=== PATIENT | male | born 1955 | race Caucasian/White ===

== ENCOUNTER → 2017-05-27 08:33 | Outpatient (CLI) | payer OTHER ==
--- NOTE | ~2017-05-27 | EC ---
PATIENT:KAM GUZMAN DATE OF SERVICE: 05/27/17 SEX: M MEDICAL RECORD: [id number] DATE OF : [birth year] LOCATION:[facility] AGE OF PATIENT: 62 ADMISSION DATE: 05/27/17 REFERRING PHYSICIAN: INTERPRETING PHYSICIAN: DUSTIN SAMANIEGO MD ECHOCARDIOGRAM REPORT ECHO CHARGES 4 ECHO COMPLETE CLINICAL DIAGNOSIS: PALPITATIONS ECHOCARDIOGRAPHIC MEASUREMENTS (adult normal given) AC root (d.<3.7cm) 3.2 cm LV Septum d (<1.2 cm> 1.2 cm Valve Excursion 2.3 cm LV Septum (systole) 2.1 cm Left Atria (s.<4.0cm> 4.0 cm LVPW d(<1.2cm) 1.2 cm RV (d.<2.3cm) 2.5 cm LVPW (sytole) 1.8 cm LV diastole(<5.6CM) 4.7 cm MV E-F(>70mm/sec) cm LV systole 2.0 cm LVOT Diameter 2.0 cm MV exc.(>10mm) cm Est.ejection fraction (50-75%) % Pericardial Effusion N DOPPLER: LVIT cm/sec A 50.0 cm/sec E 111 cm/sec LA cm/sec RVSP 36.0 mmHg LVOT 113 cm/sec AOP1/2T m/s Asc. Ao 140 cm/sec RVOT 57.0 cm/sec RA cm/sec PA 82.0 cm/sec AV Gradient Peak 7.8 mmHg AV Mean 4.3 mmHg AV Area 2.3 cm MV Gradient Peak 6.6 mmHg MV Mean 2.1 mmHg MV Area cm COMMENTS: Computer Security Specialist: Izzy NEWMANOE Tip Stitcher: 4 Dr. Samaniego TAPE# PACS DATE OF SERVICE: 05/27/2017 PROCEDURE: Transthoracic echocardiogram. FINDINGS: 1. The patient has evidence of mild left ventricular hypertrophy with inflow characteristics that are normal. The patient has preserved to mildly hyperdynamic LV systolic function 60-65%. There is no obvious regional wall motion abnormalities. 2. The left atrium is mildly dilated at 4.0 cm. ECHOCARDIOGRAM REPORT [id number] KAM GUZMAN 3. Aortic valve normal is normal structurally and normal functionally. 4. The mitral valve is normal structurally, normal functionally with trace mitral regurgitation. 5. Tricuspid valve is normal structurally and normal functionally. 6. There is no pericardial effusion. 7. Right ventricle is normal size, normal function. 8. The right atrium is normal size, normal function. CONCLUSIONS: The patient has evidence of mild left ventricular hypertrophy, otherwise normal echocardiogram for stated age. TRANSINT:[id number] Voice Confirmation ID: [id number] DOCUMENT ID: [id number] DUSTIN SAMANIEGO MD at 1038 CC: [id number] DICTATION DATE: 05/27/17 1024 APPELLATE LAW CLERK: 05/27/17 [id number] DEP CLI 05/27/17 [id number] [place] [address]
== END | disposition home or self-care (01) ==
LOC: D.ECHO 08:33
DX: R00.2 Palpitations (principal)